=== PATIENT | female | born 1945 | race Caucasian/White ===

== ENCOUNTER → 2017-12-27 09:23 | Outpatient (CLI) | payer MEDICARE, SELFPAY ==
--- NOTE | 2017-12-27 09:33 | MRI_ITS ---
STUDY: MRI CERVICAL SPINE WITHOUT CONTRAST REASON FOR EXAM: Female, 72 years old. stenosis, neck pain, tingling bilat arms and legs. TECHNIQUE: Standardized fat and water weighted pulse sequences were obtained in the sagittal and axial planes. COMPARISON: May 18, 2012 FINDINGS: Normal foramen magnum and brainstem-cervical cord junction. Normal craniovertebral junction. Normal anterior atlantoaxial articulation. There is loss of the normal cervical lordosis. C2-3: There is minimal disc space narrowing at the hilus. There is minimal disc osteophyte complex, uncovertebral without central canal stenosis. There is minimal right and mild left foraminal stenosis. C3-4: There is moderate disc space narrowing and spondylosis. There is a mild disc osteophyte complex with mild central canal stenosis. There is uncovertebral arthropathy with minimal right and severe left foraminal stenosis. Findings are stable since prior examination C4-5: There is moderate disc space narrowing and disc space narrowing. There is grade 1 anterolisthesis. There is minimal disc osteophyte complex without significant central canal stenosis. There is uncovertebral facet arthropathy with minimal right and moderate left foraminal stenosis. Findings are stable since prior examination C5-6: There is moderate disc space narrowing and endplate spondylosis. There is mild disc osteophyte complex with mild central canal stenosis. There is degenerative and facet arthropathy with minimal right and moderate left foraminal stenosis. Findings are stable for examination C6-7: There is severe disc space narrowing and endplate spondylosis. There is minimal disc osteophyte complex with mild canal stenosis. There is uncovertebral facet arthropathy with mild right and moderate left foraminal stenosis. Findings are stable from prior examination C7-T1: There is mild disc space narrowing and endplate spondylosis there is no significant central canal or foraminal Normal cervical cord. Normal visualized soft tissue structures. MRI/Spine Cervical (Routine) IMPRESSION: Stable examination. Moderate/severe scoliosis and multilevel changes greater on the left. Electronically Signed: Sulma Medrano MD at 10:32 EDT Tel , Service support ,
--- NOTE | 2017-12-27 09:33 | MRI_ITS ---
STUDY: MRI THORACIC SPINE WITHOUT CONTRAST REASON FOR EXAM: Female, 72 years old. spondylosis, mid thoracic pain, bilat arms and legs tingling. TECHNIQUE: Standardized fat and water weighted pulse sequences were obtained in the sagittal and axial planes. COMPARISON: None. FINDINGS: Normal kyphosis of the thoracic spine. There is mild scoliosis. T1-2, T2-3, T3-4, T4-5, T5-6, T6-7, T7-8, T8-9, T9-10, T10-11, T11-12: There is mild/moderate disc space narrowing and endplate spondylosis without significant central canal or foraminal stenosis Normal visualized thoracic cord. The soft tissue structures are unremarkable. MRI/Spine Thoracic (Routine) IMPRESSION: No significant central canal or foraminal stenosis. Mild/moderate multilevel degenerative changes. Electronically Signed: Sulma Medrano MD at 10:35 EDT Tel , Service support ,
--- NOTE | 2017-12-27 09:33 | MRI_ITS ---
STUDY: MRI LUMBAR SPINE WITHOUT CONTRAST REASON FOR EXAM: Female, 72 years old. radiculopathy; bilat arms and legs tingling, low back pain. TECHNIQUE: Standardized fat and water weighted pulse sequences were obtained in the sagittal and axial planes. COMPARISON: March 05, 2009 FINDINGS: T12-L1: There is severe disc space narrowing and endplate spondylosis. There is facet arthropathy with mild central canal stenosis. There is mild right foraminal stenosis. There is no significant left foraminal stenosis. There is severe levoscoliosis centered at L1/L2 with lateral translation which appear increased since the prior examination. Normal conus medullaris that terminates at the L1/L2 L1-2: There is severe disc space narrowing and endplate spondylosis. There is no significant central canal or foraminal stenosis L2-3: There is severe disc space narrowing and anterior spondylosis. There is mild disc bulging and facet arthropathy with mild central canal and mild bilateral foraminal stenosis. Findings are stable since the prior examination L3-4: There is a moderate disc space narrowing and endplate spondylosis. There is a mild disc bulge and facet arthropathy with mild central canal and mild bilateral foraminal stenosis. Findings are stable since prior examination L4-5: There is moderate disc space narrowing and endplate spondylosis. There is a mild disc bulge and facet arthropathy greater on the left with mild central canal and moderate left foraminal stenosis findings are stable since the prior examination L5-S1: There is mild disc space narrowing and endplate spondylosis. There is a mild disc bulge and facet arthropathy greater on the left with moderate left foraminal stenosis. There is no significant central canal or right foraminal stenosis. Findings are stable since the prior examination MRI/Spine Lumbar (Routine) IMPRESSION: Severe scoliosis and multilevel degenerative changes.. Electronically Signed: Sulma Medrano MD at 10:35 EDT Tel , Service support ,
== END ==
PROVIDERS: Family Provider Family Medicine; PCP Family Medicine; Visit Provider Family Medicine
DX: M54.16 Radiculopathy, lumbar region (principal); M48.02 Spinal stenosis, cervical region; M47.814 Spondylosis without myelopathy or radiculopathy, thoracic region
CPT/HCPCS: 72141; 72146; 72148

== ENCOUNTER 2018-01-08 07:33 | Day surgery (SDC) | payer MEDICARE, SELFPAY ==
[2018-01-08 07:49] VITALS: BP 145/76; PULSE 69; RESP 16; TEMP 36.6; O2SAT 96; BMI 24.5
--- NOTE | 2018-01-08 08:50 | RAD_ITS ---
PROCEDURE: Caudal block. DATE OF EXAMINATION: January 08, 2018. INDICATION: Female, 72 years old. Chronic low back pain. FLUOROSCOPY TIME (if supplied): (0:09) minutes/seconds Intraoperative imaging provided for caudal block. RAD/Fluor Guidance for Spine Inj IMPRESSION: Intraoperative imaging provided for caudal block. Electronically Signed: Bentley Lee MD at 10:03 EDT Tel [phone], Service support ,
[2018-01-08] MEDS: 0.9% Saline Lock 10 ML Syringe IV (09:06)
[2018-01-08] MEDS: Bupivacaine 0.25% 30 ML Vial (09:06)
[2018-01-08] MEDS: MethylPREDNISolone Acetate 80 MG/ML Vial (09:06)
[2018-01-08 09:12] VITALS: BP 122/72; BP 145/76; PULSE 78; RESP 16; TEMP 36.8; O2SAT 95
[2018-01-08 09:15] VITALS: BP 121/68; BP 145/76; PULSE 68; RESP 16; O2SAT 94
[2018-01-08 09:20] VITALS: BP 121/75; BP 145/76; PULSE 65; RESP 16; O2SAT 97
[2018-01-08 09:25] VITALS: BP 126/76; BP 145/76; PULSE 65; RESP 16; TEMP 37; O2SAT 94
[2018-01-08 09:32] VITALS: BP 145/76
--- NOTE | 2018-01-08 15:46 | PCM.OPRPT ---
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 (2) Radiculopathy of lumbosacral region Status: Chronic (3) Spinal stenosis of lumbosacral region Status: Chronic Report of Operation Date of Procedure: 01/08/18 Pre-Operative Diagnosis: Lumbosacral radiculopathy, lumbosacral degenerative disc disease, lumbosacral spinal stenosis Post-Operative Diagnosis: Lumbosacral radiculopathy, lumbosacral degenerative disc disease, lumbosacral spinal stenosis Surgery/Procedure Performed:: Diagnostic/therapeutic caudal epidural steroid injection Description of Surgical Findings:: Procedure: Diagnostic/therapeutic caudal epidural steroid injection Preoperative diagnosis: Lumbosacral radiculopathy, lumbosacral degenerative disc disease, lumbosacral spinal stenosis Postoperative diagnosis:Lumbosacral radiculopathy, lumbosacral degenerative disc disease, lumbosacral spinal stenosis Anesthesia: MAC Blood loss: Minimal Complications: None Procedure in detail: History and physical today was reviewed risk and benefits of procedure explained the patient understood and agreed to procedure informed consent was obtained IV inserted per routine protocol patient was taken to the operating room placed in the prone position with a pillow position underneath the abdomen the lower back and tailbone area was prepped and draped in a sterile fashion using iodine ?3 under direct visualization with fluoroscopy on the lateral view the caudal space was identified skin and subcutaneous tissue anesthetized approximately 3 cc of 1% lidocaine using a 25-gauge regular needle under direct visualization fluoroscopy on the lateral view using a 22-gauge 3-1/2 inch spinal needle the needle was advanced via the skin through the sacral hiatus tip of needle passed through the sacrococcygeal ligament advanced approximately S4 area after negative aspiration for blood or CSF a total of 3 cc of contrast were injected to confirm correct placement of the needle as well as cephalad spread the spread was followed to approximately L5 area after repeated confirmation AP as well as lateral view and repeated negative aspiration a total of 15 cc of preservative-free 0.125% Marcaine with 80 mg of Depo-Medrol were injected easily the needle was then removed intact patient experienced no sinus symptoms intrathecal or intravascular injection patient experienced no paresthesia the procedure was completed without any apparent difficulty any complication the patient appeared to tolerate well. Assessment and plan: This is a 72-year-old female with lumbosacral radiculopathy lumbosacral degenerative disc disease lumbosacral spinal stenosis status post diagnostic/therapeutic caudal epidural steroid injection patient will continue her current medications patient will follow approximately 2 weeks for possible repeat of the procedure if indicated.
== END 2018-01-08 10:00 | disposition home or self-care (01) ==
LOC: SDC 07:33 → AC 07:35
PROVIDERS: Family Provider Family Medicine; PCP Family Medicine; Visit Provider Anesthesiology Pain Medicine
PROC: 3E0S3BZ Introduction of Anesthetic Agent into Epidural Space, Percutaneous Approach (ICD-10-PCS; CPT 62282; principal; 2018-01-08 08:45)
DX: M51.17 Intervertebral disc disorders with radiculopathy, lumbosacral region (principal); M48.07 Spinal stenosis, lumbosacral region; M47.27 Other spondylosis with radiculopathy, lumbosacral region; Q67.5 Congenital deformity of spine; G47.30 Sleep apnea, unspecified; G25.81 Restless legs syndrome; Z86.73 Personal history of transient ischemic attack (TIA), and cerebral infarction without residual deficits; Z79.82 Long term (current) use of aspirin; Z79.891 Long term (current) use of opiate analgesic
CPT/HCPCS: 62323; 64520 ×5; 64483; 77003; J7120; A4216

== ENCOUNTER 2018-01-29 08:24 | Day surgery (SDC) | payer MEDICARE, SELFPAY ==
[2018-01-29 08:45] VITALS: BP 145/71; PULSE 94; RESP 16; TEMP 36.7; O2SAT 94; BMI 24.0
--- NOTE | 2018-01-29 09:05 | RAD_ITS ---
PROCEDURE: Right L3-S1 lumbar facet joint block. DATE OF EXAMINATION: January 29, 2018. INDICATION: Female, 72 years old. Chronic back pain. FLUOROSCOPY TIME (if supplied): (0:13) minutes/seconds Intraoperative fluoroscopic imaging provided for right L3-S1 facet joint block. RAD/L/S Spine Min 4 Views IMPRESSION: Intraoperative fluoroscopic services provided for right L3-S1 facet joint block. Electronically Signed: Bentley Lee MD at 10:58 EDT Tel [phone], Service support ,
[2018-01-29] MEDS: Bupivacaine 0.25% 30 ML Vial (09:12)
[2018-01-29] MEDS: MethylPREDNISolone Acetate 80 MG/ML Vial (09:14)
[2018-01-29 09:20] VITALS: BP 113/70; BP 145/71; PULSE 83; RESP 14; TEMP 36.4; O2SAT 95
[2018-01-29 09:25] VITALS: BP 122/74; BP 145/71; PULSE 86; RESP 14; O2SAT 93
[2018-01-29 09:30] VITALS: BP 113/72; BP 145/71; PULSE 80; RESP 14; O2SAT 92
--- NOTE | 2018-01-29 09:30 | OP.PCM_ITS ---
Problem List (1) Lumbosacral spondylosis Status: Chronic (2) Degeneration of intervertebral disc of lumbosacral region Status: Chronic Report of Operation Date of Procedure: 01/29/18 Pre-Operative Diagnosis: Lumbosacral spondylosis, lumbosacral degenerative disc disease, lumbar facet arthropathy Post-Operative Diagnosis: Lumbosacral spondylosis, lumbosacral degenerative disc disease, lumbar facet arthropathy Surgery/Procedure Performed:: Right-sided lumbar facet steroid injection L3, L4 , L5, S1 Description of Surgical Findings:: PROCEDURE: Right-sided lumbar facet steroid injection L3, L4, L5, S1 PREOPERATIVE DIAGNOSIS: Lumbosacral spondylosis, lumbosacral degenerative disc disease, and lumbar facet arthropathy POSTOPERATIVE DIAGNOSIS: Lumbosacral spondylosis, lumbosacral degenerative disc disease, and lumbar facet arthropathy ANESTHESIA: MAC COMPLICATIONS: None BLOOD LOSS: Minimal PROCEDURE IN DETAIL: History and physical today was reviewed. Risks and benefits of the procedure were explained. The patient understood, agreed to our procedure, and informed consent was obtained. IV inserted per routine protocol. The patient was taken to the operating room, placed in a prone position with a pillow positioned underneath the abdomen. The right side of his lower back was prepped and draped in a sterile fashion using iodine x3. Under fluoroscopy guidance, on AP view, L3 through S1 vertebral bodies were visualized. Skin and subcutaneous tissues were anesthetized with approximately 5 mL of 1% lidocaine using a 25-gauge regular needle. Under direct visualization with fluoroscopy at approximately 25-degree angle, starting on the right L3, ending on the right S1, passing through the L4-L5 using a 22-gauge 3 1/2-inch spinal needle, the needle was advanced via the skin. The tip of the needle was maneuvered and directed towards the superior and medial gutter of the transverse process at the vicinity of the medial branch. Once the tip of the needle was in contact with the bone, the needle pulled approximately 2 mm off the bone. After negative aspiration of blood with CSF and confirmation of AP as well as oblique view, a total of 8 mL of preservative-free 0.25% Marcaine with 80 mg of Depo- Medrol was injection in divided doses between those 4 levels. The needles were then removed intact. The patient experienced no signs or symptoms intrathecal, intravascular injection. The patient experienced no paraesthesia. The procedure was completed without any apparent difficult, any complication. The patient appeared to tolerate well. ASSESSMENT AND PLAN: This is a 72-year-old female with lumbosacral spondylosis, lumbosacral degenerative disc disease, and lumbar facet arthropathy, status post right-sided lumbar facet steroid injection L3 through S1. The patient will continue her current medications. The patient will follow in approximately 2 weeks for possible repeat of the procedure if indicated.
[2018-01-29 09:35] VITALS: BP 119/73; BP 145/71; PULSE 85; RESP 16; TEMP 36.2; O2SAT 92
[2018-01-29 10:30] VITALS: BP 145/71
== END 2018-01-29 10:31 | disposition home or self-care (01) ==
LOC: SDC 08:24 → AC 08:26
PROVIDERS: Family Provider Family Medicine; PCP Family Medicine; Visit Provider Anesthesiology Pain Medicine
PROC: 3E0T3BZ Introduction of Anesthetic Agent into Peripheral Nerves and Plexi, Percutaneous Approach (ICD-10-PCS; CPT 64493; principal; 2018-01-29 09:45)
DX: M47.27 Other spondylosis with radiculopathy, lumbosacral region (principal); M51.17 Intervertebral disc disorders with radiculopathy, lumbosacral region; M48.07 Spinal stenosis, lumbosacral region; M41.86 Other forms of scoliosis, lumbar region; M79.1 Myalgia; G25.81 Restless legs syndrome; Z86.73 Personal history of transient ischemic attack (TIA), and cerebral infarction without residual deficits; Z79.82 Long term (current) use of aspirin; Z79.891 Long term (current) use of opiate analgesic
CPT/HCPCS: 64493; 64494; 64495; 64483; 72110; J7120

== ENCOUNTER → 2018-02-21 12:26 | Outpatient (CLI) | payer MEDICARE, SELFPAY ==
--- NOTE | 2018-02-22 08:13 | PFTCOMP ---
COMPLETE PULMONARY FUNCTION TEST INTERPRETATION Brief HPI: Patient is a 72 year old female, currently under the care of myself, who presents to [facility] for complete pulmonary function tests secondary to diagnosis of HUGH. Respiratory therapist reports good effort and reproducible results. Interpretation: Forced expiration spirometry shows no large airways obstructive ventilatory defect with an FEV1 of 77% predicted. There is no significant bronchodilator response by ATS criteria. Spirograms are of good quality and plateau normally. The respiratory flow volume loop shows a normal pattern. Lung volumes by body plethysmography show a decreased total lung capacity at 3.55 L, 76% predicted. All other lung volumes are reduced symmetrically. Diffusion capacity by carbon monoxide is normal at 69% predicted. The airway resistance is normal. No previous pulmonary function tests were available for review. Impression: Mild restrictive ventilatory defect with preserved diffusion capacity consistent with musculoskeletal limitation.
== END ==
PROVIDERS: Family Provider Family Medicine; PCP Family Medicine; Visit Provider Internal Medicine Critical Care Medicine
DX: M41.55 Other secondary scoliosis, thoracolumbar region (principal); G47.33 Obstructive sleep apnea (adult) (pediatric)
CPT/HCPCS: 94060; 94726; 94729

== ENCOUNTER → 2018-03-23 12:50 | Outpatient (CLI) | payer MEDICARE, SELFPAY ==
--- NOTE | 2018-03-23 12:52 | BI_ITS ---
MAMMOGRAPHY - BILATERAL SCREENING REASON FOR EXAM: Female, 72 years old. Routine annual screening examination. PERTINENT HISTORY: Non-contributory. TECHNIQUE: Digital bilateral breast chayito (3D mammographic acquisition) in the CC and MLO projections. 2-D mediolateral oblique (MLO) and craniocaudad (CC) views of both breasts were obtained. CAD: Full Field Digital Mammography with Computer Added Detection was performed. COMPARISON: Comparison is made with prior study dated January 04, 2017 and December 09, 2015. FINDINGS: Breast Composition: The breasts are heterogeneously dense, which may obscure small masses. There are no dominant masses or suspicious calcifications. No other significant abnormalities are identified. There has been no significant change since the prior study. BI/SCREENING MAMM (CAD), BILAT IMPRESSION: Stable bilateral screening mammogram. Yearly follow-up mammogram recommended. (A) ASSESSMENT CATEGORY: BIRADS Category 1: Negative. A letter regarding these results will be sent to the patient by the facility within 30 days. Approximately 10% of breast cancers are not detected by mammography. A normal mammogram should not delay biopsy of a clinically suspicious abnormality. [id number] Electronically Signed: Bentley Lee MD at 14:12 EDT Tel [phone], Service support ,
== END ==
PROVIDERS: Family Provider Family Medicine; PCP Family Medicine; Visit Provider Family Medicine
DX: Z12.31 Encounter for screening mammogram for malignant neoplasm of breast (principal)
CPT/HCPCS: 77063; 77067

== ENCOUNTER 2018-03-26 08:22 | Day surgery (SDC) | payer MEDICARE, SELFPAY ==
[2018-03-26] VITALS (7 sets, daily range): BP systolic 108–136; BP diastolic 72–87; PULSE 65–83; RESP 16; TEMP 36.2–36.4; O2SAT 92–100; BMI 24.5
--- NOTE | 2018-03-26 10:10 | RAD_ITS ---
STUDY: INTRAOPERATIVE IMAGING FOR FACET JOINT BLOCK. REASON FOR EXAM: Female, 72 years old. Chronic back pain. Levoscoliosis. FLUOROSCOPY TIME (if supplied): (0:16) minutes/seconds TECHNIQUE: Intraoperative imaging provided for left L3-S1 facet joint block. COMPARISON: None. FINDINGS: Imaging provided for left L3-S1 facet joint block. RAD/L/S Spine Min 4 Views IMPRESSION: Imaging provided for left L3-S1 facet joint block. Electronically Signed: Bentley Lee MD at 11:21 EDT Tel [phone], Service support ,
[2018-03-26] MEDS: Bupivacaine 0.25% 30 ML Vial (10:26)
[2018-03-26] MEDS: MethylPREDNISolone Acetate 80 MG/ML Vial (10:26)
--- NOTE | 2018-03-26 11:52 | OP.PCM_ITS ---
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 (2) Lumbosacral spondylosis Status: Chronic Report of Operation Date of Procedure: 03/26/18 Pre-Operative Diagnosis: Lumbosacral spondylosis, lumbosacral degenerative disc disease, lumbar facet arthropathy Post-Operative Diagnosis: Lumbosacral spondylosis, lumbosacral degenerative disc disease, lumbar facet arthropathy Surgery/Procedure Performed:: Left-sided lumbar facet steroid injection L3, L4, L5, S1 Description of Surgical Findings:: PROCEDURE: Left-sided lumbar facet steroid injection L3, L4, L5, S1 PREOPERATIVE DIAGNOSIS: Lumbosacral spondylosis, lumbosacral degenerative disc disease, and lumbar facet arthropathy POSTOPERATIVE DIAGNOSIS: Lumbosacral spondylosis, lumbosacral degenerative disc disease, and lumbar facet arthropathy ANESTHESIA: MAC COMPLICATIONS: None BLOOD LOSS: Minimal PROCEDURE IN DETAIL: History and physical today was reviewed. Risks and benefits of the procedure were explained. The patient understood, agreed to our procedure, and informed consent was obtained. IV inserted per routine protocol. The patient was taken to the operating room, placed in a prone position with a pillow positioned underneath the abdomen. The left side of her lower back was prepped and draped in a sterile fashion using iodine x3. Under fluoroscopy guidance, on AP view, L3 through S1 vertebral bodies were visualized. Skin and subcutaneous tissues were anesthetized with approximately 5 mL of 1% lidocaine using a 25-gauge regular needle. Under direct visualization with fluoroscopy at approximately 25-degree angle, starting on the left L3, ending on the left S1, passing through the L4-L5 using a 22-gauge 3 1/2-inch spinal needle, the needle was advanced via the skin. The tip of the needle was maneuvered and directed towards the superior and medial gutter of the transverse process at the vicinity of the medial branch. Once the tip of the needle was in contact with the bone, the needle pulled approximately 2 mm off the bone. After negative aspiration of blood with CSF and confirmation of AP as well as oblique view, a total of 8 mL of preservative-free 0.25% Marcaine with 80 mg of Depo- Medrol was injection in divided doses between those 4 levels. The needles were then removed intact. The patient experienced no signs or symptoms intrathecal, intravascular injection. The patient experienced no paraesthesia. The procedure was completed without any apparent difficult, any complication. The patient appeared to tolerate well. ASSESSMENT AND PLAN: This is a 72-year-old Female with lumbosacral spondylosis, lumbosacral degenerative disc disease, and lumbar facet arthropathy, status post left-sided lumbar facet steroid injection L3 through S1. The patient will continue her current medications. The patient will follow in approximately 2 weeks for possible repeat of the procedure if indicated.
== END 2018-03-26 11:29 | disposition home or self-care (01) ==
LOC: SDC 08:22 → AC 08:23
PROVIDERS: Family Provider Family Medicine; PCP Family Medicine; Visit Provider Anesthesiology Pain Medicine
PROC: 3E0T3BZ Introduction of Anesthetic Agent into Peripheral Nerves and Plexi, Percutaneous Approach (ICD-10-PCS; CPT 64493; principal; 2018-03-26 10:05)
DX: M47.27 Other spondylosis with radiculopathy, lumbosacral region (principal); M51.17 Intervertebral disc disorders with radiculopathy, lumbosacral region; M48.07 Spinal stenosis, lumbosacral region; M41.86 Other forms of scoliosis, lumbar region; M79.1 Myalgia; Q76.49 Other congenital malformations of spine, not associated with scoliosis; G25.81 Restless legs syndrome; Z86.73 Personal history of transient ischemic attack (TIA), and cerebral infarction without residual deficits; Z79.82 Long term (current) use of aspirin; Z79.891 Long term (current) use of opiate analgesic
CPT/HCPCS: 64493; 64494; 64495; 64483; 72110; J7120

== ENCOUNTER 2018-05-14 07:57 | Day surgery (SDC) | payer MEDICARE, SELFPAY ==
[2018-05-14 08:18] VITALS: BP 126/77; PULSE 88; RESP 14; TEMP 35.6; O2SAT 96; BMI 24.4
[2018-05-14] MEDS: MethylPREDNISolone Acetate 80 MG/ML Vial (08:48)
[2018-05-14] MEDS: Bupivacaine 0.25% 30 ML Vial (08:48)
[2018-05-14 08:58] VITALS: BP 118/66; BP 126/77; PULSE 69; RESP 16; TEMP 36.4; O2SAT 94
[2018-05-14 09:00] VITALS: BP 118/66; BP 126/77; PULSE 67; RESP 16; O2SAT 94
[2018-05-14 09:05] VITALS: BP 107/79; BP 126/77; PULSE 70; RESP 16; O2SAT 95
[2018-05-14 09:10] VITALS: BP 110/69; BP 126/77; PULSE 73; RESP 16; TEMP 36.2; O2SAT 94
[2018-05-14 09:23] VITALS: BP 126/77
--- NOTE | 2018-05-14 11:08 | PCM.OPRPT ---
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 (2) Lumbosacral spondylosis Status: Chronic Report of Operation Date of Procedure: 05/14/18 Pre-Operative Diagnosis: Lumbosacral spondylosis, lumbosacral degenerative disc disease, lumbar facet arthropathy Post-Operative Diagnosis: Lumbosacral spondylosis, lumbosacral degenerative disc disease, lumbar facet arthropathy Surgery/Procedure Performed:: Left sided lumbar facet steroid injection L3, L4, L5, S1 Description of Surgical Findings:: PROCEDURE: Left-sided lumbar facet steroid injection L3, L4, L5, S1 PREOPERATIVE DIAGNOSIS: Lumbosacral spondylosis, lumbosacral degenerative disc disease, lumbar facet arthropathy POSTOPERATIVE DIAGNOSIS: Lumbosacral spondylosis, lumbosacral degenerative disc disease, lumbar facet arthropathy ANESTHESIA: MAC COMPLICATIONS: None BLOOD LOSS: Minimal PROCEDURE IN DETAIL: History and physical today was reviewed. Risks and benefits of the procedure were explained. The patient understood, agreed to our procedure, and informed consent was obtained. IV inserted per routine protocol. The patient was taken to the operating room, placed in a prone position with a pillow positioned underneath the abdomen. The left side of her lower back was prepped and draped in a sterile fashion using iodine x3. Under fluoroscopy guidance, on AP view, L3 through S1 vertebral bodies were visualized. Skin and subcutaneous tissues were anesthetized with approximately 5 mL of 1% lidocaine using a 25-gauge regular needle. Under direct visualization with fluoroscopy at approximately 25-degree angle, starting on the left L3, ending on the left S1, passing through the L4-L5 using a 22-gauge 3 1/2-inch spinal needle, the needle was advanced via the skin. The tip of the needle was maneuvered and directed towards the superior and medial gutter of the transverse process at the vicinity of the medial branch. Once the tip of the needle was in contact with the bone, the needle pulled approximately 2 mm off the bone. After negative aspiration of blood with CSF and confirmation of AP as well as oblique view, a total of 8 mL of preservative-free 0.25% Marcaine with 80 mg of Depo-Medrol was injection in divided doses between those 4 levels. The needles were then removed intact. The patient experienced no signs or symptoms intrathecal, intravascular injection. The patient experienced no paraesthesia. The procedure was completed without any apparent difficult, any complication. The patient appeared to tolerate well. ASSESSMENT AND PLAN: This is a 73-year-old F with Lumbosacral spondylosis, lumbosacral degenerative disc disease, lumbar facet arthropathy status post left-sided lumbar facet steroid injection L3 through S1. The patient will continue her current medications. The patient will follow in approximately 2 weeks for possible repeat of the procedure if indicated.
== END 2018-05-14 09:55 | disposition home or self-care (01) ==
LOC: SDC 07:58
PROVIDERS: Family Provider Family Medicine; PCP Family Medicine; Visit Provider Anesthesiology Pain Medicine
PROC: 3E0T3BZ Introduction of Anesthetic Agent into Peripheral Nerves and Plexi, Percutaneous Approach (ICD-10-PCS; CPT 64493; principal; 2018-05-14 08:45)
DX: M47.817 Spondylosis without myelopathy or radiculopathy, lumbosacral region (principal); M51.37 Other intervertebral disc degeneration, lumbosacral region; M46.96 Unspecified inflammatory spondylopathy, lumbar region; R01.1 Cardiac murmur, unspecified; Q76.49 Other congenital malformations of spine, not associated with scoliosis; G25.81 Restless legs syndrome; Z86.73 Personal history of transient ischemic attack (TIA), and cerebral infarction without residual deficits; Z79.899 Other long term (current) drug therapy
CPT/HCPCS: 64493; 64494; 64495; 64483; 72100; J7120

== ENCOUNTER 2018-10-29 06:37 | Day surgery (SDC) | payer MEDICARE, SELFPAY ==
[2018-10-29] VITALS (9 sets, daily range): BP systolic 77–144; BP diastolic 51–83; PULSE 61–72; RESP 16–18; TEMP 36.3–36.4; O2SAT 92–96; BMI 24.2
--- NOTE | 2018-10-29 08:00 | RAD_ITS ---
STUDY: X-RAY - LUMBAR SPINE REASON FOR EXAM: Female, 73 years old. Radiofrequency ablation TECHNIQUE: 10 view(s) of the lumbar spine were obtained. COMPARISON: None FINDINGS: 10 images were submitted, as radiology support for c-arm imaging in the operating room. This is not a diagnostic examination. Images for documentation purposes only. Fluoroscopy time if reported: 43.6 seconds RAD/Lumbar Spine 2 or 3 Views IMPRESSION: Intraoperative fluoroscopic image guidance. Electronically Signed: Jocelynn Chung MD at 4:20 EST , Service support ,
[2018-10-29] MEDS: MethylPREDNISolone Acetate 80 MG/ML Vial (08:16)
[2018-10-29] MEDS: Bupivacaine 0.25% 30 ML Vial (08:16)
--- NOTE | 2018-10-29 11:07 | OP.PCM_ITS ---
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 (2) Lumbosacral spondylosis Status: Chronic Report of Operation Date of Procedure: 10/29/18 Pre-Operative Diagnosis: Lumbosacral spondylosis, lumbosacral degenerative disc disease, lumbar facet arthropathy Post-Operative Diagnosis: Lumbosacral spondylosis, lumbosacral degenerative disc disease, lumbar facet arthropathy Surgery/Procedure Performed:: Left-sided lumbar radio frequency ablation of the medial branch at L3, L4, L5, S1 Description of Surgical Findings:: PROCEDURE: Left-sided radiofrequency ablation of the medial branch L3, L4, L5, S1 PREOPERATIVE DIAGNOSES: Lumbosacral spondylosis, lumbosacral degenerative disc disease, lumbar facet arthropathy POSTOPERATIVE DIAGNOSES: Lumbosacral spondylosis, lumbosacral degenerative disc disease, lumbar facet arthropathy ANESTHESIA: MAC COMPLICATIONS: None BLOOD LOSS: Minimal PROCEDURE IN DETAIL: History and physical today was reviewed. Risks and benefits of procedure explained. The patient understood, agreed to the procedure and informed consent was obtained. IV inserted per routine protocol. The patient was taken to the operating room, placed in the prone position with a pillow positioned underneath the abdomen. The left side of the lower back was prepped and draped in a sterile fashion using iodine x 3. Under fluoroscopy guidance, on an oblique view, the L3 through S1 vertebral bodies were visualized. The skin and subcutaneous tissue was anesthetized with approximately 10 mL of 1% lidocaine using a 25-gauge regular needle. Under direct visualization with fluoroscopy at approximately 25-degree angle, starting on the left L3, ending on the left S1 passing through the L4-L5 using a 20-gauge 15 cm with a 10 mm curved active tip radiofrequency ablation needle the needle passed through the skin. The tip of the needle was maneuvered and directed towards the superior and medial gutter of the transverse process at the vicinity of the medial branch. Once the tip of the needle was in contact with the bone, the needle pulled approximately 2 mm up the bone. The stylet of each needle was then removed. After negative aspiration of blood with CSF and confirmation of AP as well as oblique view, radiofrequency ablation probe was then inserted at each level. Impedance was then recorded at L3 to be 288, at L4 298, at L5 287, at S1 254 ohm. Motor-evoked potential was then initiated to 1.5 volt without any motor response at each corresponding level. The probe was then removed intact and a total of 6 mL preservative-free 1% lidocaine was injected in divided doses between those 4 levels after negative aspiration of blood with CSF. The radiofrequency ablation probe was then reinserted after confirmation of AP, oblique as well as lateral view. Radiofrequency ablation was then initiated to 80 degrees Celsius for 90 seconds at each level. Once concluded, the probe was then removed intact and a total of 6 mL of preservative-free 0.25% Marcaine with 40 mg Depo-Medrol was injected in divided doses between those 4 levels. The needles were then removed intact. The patient experienced no signs or symptoms of intrathecal, intravascular injection. The patient experienced no paraesthesia. The procedure was completed without any apparent difficulty, any complication. The patient appeared to tolerate well. Sensory as well as motor exam was unchanged from prior to procedure. ASSESSMENT AND PLAN: This is a 73-year-old female with lumbosacral spondylosis, lumbosacral degene rative disc disease, lumbar facet arthropathy, status post left-sided radiofrequency ablation of the medial branch L3 through S1. The patient will continue her current medications. The patient will follow up in approximately 2 weeks for reevaluation.
== END 2018-10-29 09:47 | disposition home or self-care (01) ==
LOC: SDC 06:37 → AC 06:39
PROVIDERS: Family Provider Family Medicine; PCP Family Medicine; Referring Provider Anesthesiology Pain Medicine; Visit Provider Anesthesiology Pain Medicine
PROC: (CPT 64635; principal; 2018-10-29 07:45)
DX: M51.17 Intervertebral disc disorders with radiculopathy, lumbosacral region (principal); M48.07 Spinal stenosis, lumbosacral region; M47.27 Other spondylosis with radiculopathy, lumbosacral region; M41.86 Other forms of scoliosis, lumbar region; G25.81 Restless legs syndrome; Z86.73 Personal history of transient ischemic attack (TIA), and cerebral infarction without residual deficits; Z79.82 Long term (current) use of aspirin; Z79.891 Long term (current) use of opiate analgesic; Z79.899 Other long term (current) drug therapy; Z99.81 Dependence on supplemental oxygen
CPT/HCPCS: 64635; 64636 ×3; 72100; 76000; J7120

== ENCOUNTER 2019-01-07 09:45 | Day surgery (SDC) | payer MEDICARE, SELFPAY ==
[2018-10-29 07:00] VITALS: BMI 24.2
[2019-01-07 10:06] VITALS: BP 131/79; PULSE 83; RESP 18; TEMP 36.7; O2SAT 97; BMI 24.8
--- NOTE | 2019-01-07 11:12 | RAD_ITS ---
PROCEDURE: Caudal block. DATE OF EXAMINATION: January 07, 2015. INDICATION: Female, 73 years old. Chronic back pain. FLUOROSCOPY TIME (if supplied): (0:07) minutes/seconds. 2 coned-down views were obtained. Intraoperative fluoroscopic imaging provided for caudal block. The spinal needle is seen along the posterior inferior aspect of the sacrum. RAD/Fluor Guidance for Spine Inj IMPRESSION: Intraoperative fluoroscopic services provided for caudal block. Electronically Signed: Bentley Lee, at 12:59 EDT , Service support ,
[2019-01-07] MEDS: Bupivacaine 0.25% 30 ML Vial (11:20)
[2019-01-07] MEDS: MethylPREDNISolone Acetate 80 MG/ML Vial (11:20)
--- NOTE | 2019-01-07 11:24 | OP.PCM_ITS ---
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 (2) Radiculopathy of lumbosacral region Status: Chronic Report of Operation Date of Procedure: 01/07/19 Pre-Operative Diagnosis: Lumbosacral radiculopathy, lumbosacral degenerative disc disease, lumbosacral spinal stenosis Post-Operative Diagnosis: Lumbosacral radiculopathy, lumbosacral degenerative disc disease, lumbosacral spinal stenosis Surgery/Procedure Performed:: Caudal epidural steroid injection Description of Surgical Findings:: PROCEDURE: Caudal epidural steroid injection PREOPERATIVE DIAGNOSIS: Lumbosacral radiculopathy, lumbosacral degenerative disc disease, lumbosacral spinal stenosis POSTOPERATIVE DIAGNOSIS: Lumbosacral radiculopathy, lumbosacral degenerative disc disease, lumbosacral spinal stenosis ANESTHESIA: MAC COMPLICATIONS: None BLOOD LOSS: Minimal PROCEDURE IN DETAIL: History and physical today was reviewed. Risks and benefits of the procedure were explained. The patient understood, agreed to our procedure, and informed consent was obtained. IV inserted per routine protocol. The patient was taken to the operati ng room, placed in a prone position with a pillow positioned underneath the abdomen. The lower back and tailbone area was prepped and draped in a sterile fashion using iodine ?3 under fluoroscopy guidance on the lateral view the caudal space was identified the skin and subcutaneous tissue and size approximately 3 cc of 1% lidocaine using a 25-gauge regular needle under direct visualization fluoroscopy using the lateral approach using a 22-gauge 3-1/2 inch spinal needle the needle was advanced via the skin through the sacral hiatus, tip of the needle passed through the sacrococcygeal ligament advanced approximately S4 area after negative aspiration for blood or CSF a total of 3 cc of contrast were injected to confirm correct placement of the needle as well as cephalad spread the spread was followed to approximately L5 area after confirmation on AP as well as lateral view and repeated negative aspiration, a total of 15 cc of preservative-free 0.125% Marcaine with 80 mg of the Depo-Medrol was injected easily. The needle was then removed intact. The patient experienced no signs or symptoms of intrathecal, intravascular injection. The patient experienced no paraesthesia. The procedure was completed without any apparent difficult, any complication. The patient appeared to tolerate well. ASSESSMENT AND PLAN: This is a 73-year-old female with lumbosacral radiculopathy, lumbosacral degenerative disc disease, lumbosacral spinal stenosis status post caudal epidural steroid injection. The patient will continue her current medications. The patient will follow in approximately 2 weeks for reevaluation.
[2019-01-07 11:25] VITALS: BP 108/72; BP 131/79; PULSE 80; RESP 16; TEMP 36.7; O2SAT 95
[2019-01-07 11:30] VITALS: BP 107/71; BP 131/79; PULSE 80; RESP 16; O2SAT 96
[2019-01-07 11:35] VITALS: BP 119/73; BP 131/79; PULSE 79; RESP 16; O2SAT 95
[2019-01-07 11:40] VITALS: BP 110/67; BP 131/79; PULSE 75; RESP 16; TEMP 36.4; O2SAT 98
[2019-01-07 12:25] VITALS: BP 131/79
== END 2019-01-07 12:26 | disposition home or self-care (01) ==
LOC: SDC 09:47 → AC 09:48
PROVIDERS: Family Provider Family Medicine; PCP Family Medicine; Referring Provider Anesthesiology Pain Medicine; Visit Provider Anesthesiology Pain Medicine
PROC: 3E0S3BZ Introduction of Anesthetic Agent into Epidural Space, Percutaneous Approach (ICD-10-PCS; CPT 62282; principal; 2019-01-07 11:05)
DX: M51.17 Intervertebral disc disorders with radiculopathy, lumbosacral region (principal); G47.30 Sleep apnea, unspecified; G25.81 Restless legs syndrome; Z79.899 Other long term (current) drug therapy
CPT/HCPCS: 62323; 64520; 64483; 77003; J7120; J3490

== ENCOUNTER → 2019-01-10 | Outpatient (CLI) | payer MEDICARE, SELFPAY ==
[2019-01-07 10:06] VITALS: BMI 24.8
--- NOTE | 2019-01-10 15:23 | PFTCOMP ---
COMPLETE PULMONARY FUNCTION TEST INTERPRETATION Brief HPI: Patient is a 73 year old female, currently under the care of myself, who presents to [facility] for complete pulmonary function tests secondary to diagnosis of HUGH. Respiratory therapist reports good effort and reproducible results. Interpretation: Forced expiration spirometry shows no large airways obstructive ventilatory defect with an FEV1 of 87% predicted. There is no significant bronchodilator response by strict ATS criteria. Spirograms are of good quality and plateau normally. The respiratory flow volume loop shows a normal pattern. Lung volumes by body plethysmography show a decreased total lung capacity at 3.62 L, 79% predicted. All other lung volumes are reduced symmetrically. Diffusion capacity by carbon monoxide is normal at 70% predicted. The airway resistance is elevated. Compared to previous pulmonary function tests from 02/21/2018, there has been no significant change. Impression: Held restrictive ventilatory defect with no significant exchange underwriting consultant the last year
== END | disposition home or self-care (01) ==
LOC: PSN 10:43
PROVIDERS: Family Provider Family Medicine; PCP Family Medicine; Referring Provider Internal Medicine Critical Care Medicine; Visit Provider Internal Medicine Critical Care Medicine
DX: M41.9 Scoliosis, unspecified (principal); G47.33 Obstructive sleep apnea (adult) (pediatric)
CPT/HCPCS: 94060; 94726; 94729

== ENCOUNTER → 2019-03-25 | Outpatient (CLI) | payer MEDICARE, SELFPAY ==
[2019-01-18 11:14] VITALS: BMI 24.3
--- NOTE | 2019-03-25 12:10 | RAD_ITS ---
STUDY: X-RAY - PELVIS AND BILATERAL HIPS REASON FOR EXAM: Female, 73 years old. Pain TECHNIQUE: AP view of the pelvis.? 2 views of the right hip, and 2 views of the left hip were obtained. COMPARISON: None. FINDINGS: There is a non-specific bowel gas pattern. Normal visualized soft tissue structures. There is narrowing with cortical sclerosis and osteophyte formation of the sacroiliac joint consistent with degenerative osteoarthritic changes. Normal bilateral superior and inferior pubic rami. Normal pubic symphysis. Normal bilateral ischial tuberosities. Normal visualized right femoral head. Normal right acetabulum. There is moderate articular joint space narrowing of the right hip. Normal visualized left femoral head. Normal left acetabulum. There is moderate articular joint space narrowing of the left hip. Multiple lucent centered phleboliths noted in the pelvis. RAD/Hips B/L min 2 views w/ Pelvis IMPRESSION: Age consistent hip and SI joint arthrosis. No demonstrated fracture Electronically Signed: Nuno Pizarro MD at 13:59 EDT , Service support ,
== END | disposition home or self-care (01) ==
LOC: RAD 12:04
PROVIDERS: Family Provider Family Medicine; PCP Family Medicine; Referring Provider Nurse Practitioner Family; Visit Provider Nurse Practitioner Family
DX: M25.551 Pain in right hip (principal); M25.552 Pain in left hip
CPT/HCPCS: 73521

== ENCOUNTER → 2019-05-01 11:27 | Outpatient (CLI) | payer MEDICARE, SELFPAY ==
[2019-01-18 11:14] VITALS: BMI 24.3
--- NOTE | 2019-05-01 11:32 | BD_ITS ---
STUDY: DUAL ENERGY X-RAY ABSORPTIOMETRY / DXA REASON FOR EXAM: Female, 73 years old. The patient is postmenopausal. Loss of height. TECHNIQUE: Bone Mineral Density (BMD) measurements of lumbar spine and bilateral hips were obtained. COMPARISON: Comparison is made with prior study dated May 11, 2016. FINDINGS: Lumbar Spine (L1-L4): g/cm2 (1.047) / T-score (-1.3) / Z-score (0.5) Findings are suggestive of osteopenia with a low fracture risk. Left Femur Total: g/cm2 (0.819) / T-score (-1.5) / Z-score (0.3) Left Femoral Neck: g/cm2 (0.760) / T-score (-2.0) / Z-score (0.0) Right Femur Total: g/cm2 (0.813) / T-score (-1.5) / Z-score (0.2) Right Femoral Neck: g/cm2 (0.688) / T-score (-2.5) / Z-score (-0.6) The T-Scores on the most recent prior examination were: Lumbar Spine (L1-L4): There has been worsening of bone density since the previous examination. Left Femur Total: which represents a worsening of 3.1%. Right Femur Total: which represents a worsening of 8.3%. BD/Dexa Bone Density Study IMPRESSION: The patient is considered osteoporotic as outlined below according to World [employer] Organization (WHO) criteria with a high fracture risk. There has been worsening of bone density since the previous examination. Reference Information: The T-score is the number of standard deviations above or below the standard which is normal for young adults at their peak bone mineral density. The World Health Organization (WHO) interprets the T-scores as follows: Above -1 Normal bone density Between -1 and -2.5 Osteopenia Equal to / or below -2.5 Osteoporosis As a practical clinical guideline, osteopenia may be graded as follows: Mild -1 through -1.5 Moderate -1.6 through -2.0 Severe -2.1 through -2.4 The Z-score is the number of standard deviations above or below age-matched controls. A Z-score of less than -1.5 would be considered abnormal. References: 1. NIH Osteoporosis and Related Bone Diseases http://www.osteo.org 2. International Society for Clinical Densitometry http://www.iscd.org 3. National Osteoporosis Foundation http://www.nof.org Electronically Signed: Bentley Lee, at 9:22 EDT , Service support ,
--- NOTE | 2019-05-01 11:33 | BI_ITS ---
MAMMOGRAPHY - BILATERAL SCREENING REASON FOR EXAM: Female, 73 years old. Routine annual screening examination. PERTINENT HISTORY: Non-contributory. TECHNIQUE: Digital bilateral breast rod (3D mammographic acquisition) in the CC and MLO projections. 2-D mediolateral oblique (MLO) and craniocaudad (CC) views of both breasts were obtained. CAD: Full Field Digital Mammography with Computer Added Detection was performed. COMPARISON: Comparison is made with prior study dated March 23, 2018 and January 04, 2017. FINDINGS: Breast Composition: The breasts are heterogeneously dense, which may obscure small masses. There are no dominant masses or suspicious calcifications. No other significant abnormalities are identified. There has been no significant change since the prior study. BI/SCREEN MAMM (CAD) W/ROD BILAT IMPRESSION: Stable bilateral screening mammogram. Yearly follow-up mammogram recommended. (A) ASSESSMENT CATEGORY: BIRADS Category 1: Negative. A letter regarding these results will be sent to the patient by the facility within 30 days. Approximately 10% of breast cancers are not detected by mammography. A normal mammogram should not delay biopsy of a clinically suspicious abnormality. [id number] Electronically Signed: Bentley Lee, at 12:52 EDT , Service support ,
== END ==
PROVIDERS: Family Provider Family Medicine; PCP Family Medicine; Referring Provider Family Medicine; Visit Provider Family Medicine
DX: Z78.0 Asymptomatic menopausal state (principal); Z12.31 Encounter for screening mammogram for malignant neoplasm of breast
CPT/HCPCS: 77063; 77067; 77080

== ENCOUNTER → 2020-07-15 20:58 | Outpatient (CLI) | payer MEDICARE, SELFPAY ==
[2020-06-22 07:44] VITALS: BMI 26.8
== END ==
PROVIDERS: PCP Family Medicine; Visit Provider Nurse Practitioner Acute Care
DX: G47.33 Obstructive sleep apnea (adult) (pediatric) (principal)
CPT/HCPCS: 95811

== ENCOUNTER 2020-11-23 06:31 | Outpatient (RCR) | payer MEDICARE, SELFPAY | END 2020-11-23 23:59 | LOC: IMMUN 06:31 | PROVIDERS: PCP Family Medicine; Visit Provider Family Medicine | DX: Z23 Encounter for immunization (principal) | CPT/HCPCS: 0011A; 0012A ==

== ENCOUNTER 2021-12-22 08:20 | Day surgery (SDC) | payer OTHER, SELFPAY ==
[2021-12-22] VITALS (7 sets, daily range): BP systolic 119–143; BP diastolic 65–74; PULSE 73–85; RESP 16; TEMP 36–36.3; O2SAT 92–96; BMI 26.2
--- NOTE | 2021-12-22 08:36 | PCM.HP.BLA ---
History and Physical Date of Admission: 12/22/21 ELVIE CARPENTER, is a 76 F who presents to the office today for evaluation of laryngitis possibly secondary to reflux disease. She has been getting periodic laryngitis associated with intermittent esophageal dysphagia for several months. She says that she is not getting classic heartburn or regurgitation. She does have intermittent esophageal dysphagia in the proximal esophagus associated with solid foods and pills. She says this will get back enough that people have difficulty understanding her, frequent sore throats, difficulty swallowing food, weird epigastric sensation. Onset of symptoms 3-4 years prior with progression. Denies aggravating and alleviating factors. Denies seeing ENT. PCP encouraged Mucinex and Flonase to help with sinus drainage which she finds minimally helpful. Reports pinched nerves in her upper back and neck, rhinitis and increased saliva. Reports heart murmur that she was concerned about so she had cardiology workup which was cleared in regard to her presenting symptoms. Family history of esophageal cancer with her uncle who she reports had a horrible . ROS Const Constitutional: No anorexia, fatigue, fever(s), weight change or sleep problems Eyes Eyes: No change in vision ENT ENT: No abnormal hearing, difficulty swallowing, mouth lesions, tongue swelling or throat swelling Resp Respiratory: No cough or shortness of breath Cardio Cardiology: No chest pain at rest, chest pain with exertion, shortness of breath or dyspnea on exertion Gastro GI: No difficulty swallowing Genitourinary-Female: No difficulty urinating or burning urination Musc Musculoskeletal: No joint pain, joint swelling, muscle weakness or decreased muscle mass Skin Skin: No hair loss in leg, yellowing of the eye, itchy eyes, rash, skin ulcer or skin swelling Neuro Neurology: No abnormal hearing, abnormal movements, confusion, unsteady gait/balance or memory loss Psych Psychiatric: No anxiety, No confusion and No memory loss Endo Endocrine: No fatigue or weight change Aller/Imm Allergy/Immunologic: No itchy eyes, throat swelling or tongue swelling Sadi/Lymp Hematologic/Lymphatic: No easy bleeding, easy bruising or enlarged lymph nodes Exam Const General: cooperative and comfortable Nutritional Appearance: average body habitus and well nourished HENMT Head: normal to inspection Ears: hearing grossly normal bilaterally Nose: external nose normal Face and sinus: normal facial exam Mouth: oral mucosae normal Throat: posterior oropharynx normal Eyes General: appearance normal, both eyes and all related structures Neck Neck: normal visual inspection Chest Chest palpation & inspection: normal inspection of the chest and normal palpation of entire chest wall Resp Effort & Inspection: normal respiratory effort Auscultation: Bilateral: Clear to Auscultation Cardio Palpation: normal PMI Rate: regular rate Rhythm: regular rhythm GI Inspection: normal to inspection Auscultation: normal bowel sounds Percussion: normal to percussion Palpation: no hepatosplenomegaly Skin General: no rashes or lesions noted Neuro General: patient alert Extrem General: normal to inspection Psych Affect: normal affect Quality Reporting Tobacco Screening ([facility]) Smoking Status: Never smoker Assessment and Plan Assessment and Plan (1) Dysphagia: Status: Acute Orders: Orders: EGD Today Plan - Corine Hernandez: egd Plan - Dr. Fernandez Friend, DO: We will evaluate her upper esophagus for eosinophilic esophagitis, erosive esophagitis, gastric inlet, esophageal rings. We will also perform random biopsies of esophagus and place a Tompkins probe to see if she is having silent reflux. She was okay with this plan. I would not put her on PPI therapy because I would like to do the Tompkins pH study off of acid suppression. I have re-examined the patient. There are no clinical changes since date of exam.
[2021-12-22] MEDS: Lactated Ringers 1,000 ML 15 ML IV (08:40)
--- NOTE | 2021-12-22 09:15 | IMM_PTH ---
PATIENT: ELVIE CARPENTER LOC: EN U#:[id number] AGE/SX: 76/F ROOM: RE12/22/[address]: Dr. Jim Antonio DO : 1945 BED: DIS: 12/22/2021 SPEC #: [id number] RECD: 12/22/21 13:20 STATUS: RANDALL REErna #: [id number] PREMA: 12/22/21 09:[address]: Jim Antonio DEPT: IMMUNOHISTOCHEMISTRY RECD BY: Rosa Hoskins ENTERED: 12/22/21 13:21 SP TYPE: IMMUNO OTHR DR: Dr. Shola Dai DO Tissues: A - Stomach, NOS Procedures: H Pylori (initial) PHYSICIAN & INSTITUTION [place] [id number] SPECIMEN INFORMATION: Tissue Source: A ? Gastric body Clinical Info: Dysphagia Specimen Number: [id number] CPT code: 43301 METHODOLOGY: Deparaffinized sections of prefer/formalin-fixed tissue or PAP/DQ stained slides are incubated with monoclonal/polyclonal antibodies/oligonucleotide probes. Localization is made via biotin free immunoperoxidase method. Appropriate controls are performed and reacted as expected. Results on target cell population are indicated in the following table: RESULTS: ANTIBODY / CLONE RESULT Block A H Pylori (polyclonal) negative These tests were developed and their performance characteristics determined by [facility]. They may not have been cleared or approved by the U.S. Food and Drug Administration. The FDA has determined that such clearance or approval is not necessary. INTERPRETATION: A. Gastric body, biopsy: Negative for Helicobacter pylori organisms. SJ:souleymane 12/23/2021
--- NOTE | 2021-12-22 09:15 | EGD_PTH ---
PATIENT: ELVIE CARPENTER LOC: EN U#:[id number] AGE/SX: 76/F ROOM: RE12/22/[address]: Dr. iJm Antonio DO : 1945 BED: DIS: 12/22/2021 SPEC #: [id number] RECD: 12/22/21 10:52 STATUS: RANDALL REErna #: [id number] PREMA: 12/22/21 09:[address]: Jim Antonio DEPT: SURGICAL PATHOLOGY RECD BY: Kirstie Ariza ENTERED: 12/22/21 12:26 SP TYPE: EGD BIOPSY NUNO DR: Dr. Shola Dai DO Tissues: A - Gastric mucous membrane B - Esophagus, NOS Procedures: Surgery Specimen Level IV HEADER OPERATION: EGD ([facility]) PRE-OP DIAGNOSIS: Dysphagia TISSUE SUBMITTED: A ? Gastric body, B ? Distal esophagus MICROSCOPIC DIAGNOSIS A. Gastric body, biopsy: Mild gastritis. See microscopic description and comment. B. Distal esophagus, biopsy: Fragments of squamous epithelium with chronic inflammation and changes consistent with gastroesophageal reflux disease. MARY ELLEN:souleymane 12/23/2021 COMMENT A. The results of immunohistochemistry for Helicobacter pylori will be reported separately ([id number]). MICROSCOPIC DESCRIPTION Slides are reviewed. A. The specimen shows fragments of gastric mucosa with chronic inflammatory cell infiltrates in the lamina propria consisting of lymphocytes and plasma cells, consistent with mild chronic gastritis. GROSS DESCRIPTION A - Received in fixative is one container labeled with the patient's name and designated gastric body biopsy. The specimen consists of multiple irregular fragments of light howell soft tissue that in aggregate measure 1 x 0.5 x 0.1 cm. The specimen is totally submitted in one cassette. B - Received in fixative is one container labeled with the patient's name and designated distal esophagus biopsy. The specimen consists of two irregular fragments of light howell soft tissue that in aggregate measure 1 x 0.7 x 0.1 cm. The specimen is totally submitted in one cassette. / MARY ELLEN:souleymane 12/22/2021 TC:3 CPT: 01249 x2
--- NOTE | 2021-12-22 09:55 | OP.CCLET_ITS ---
06/22/2022 Shola Dai Re : Upper GI endoscopy procedure for Deja Ly Dear Suhas This procedure was performed on Wednesday, December 22, 2021. My impressions and recommendations are as follows: Impressions : - LA Grade A reflux esophagitis. Biopsied. - Moderate Schatzki ring. Dilated. - Gastritis. Biopsied. - Normal first portion of the duodenum. Recommendations : - Discharge patient to home. - Advance diet as tolerated today. - Continue present medications. - Use Protonix (pantoprazole) 20 mg PO BID for 8 weeks. - Nystatin suspension 100,000 units PO QID for 1 week. My findings are described in the full procedure note, which is enclosed. If I can be of further assistance, please feel free to contact me at . Sincerely, Jim Friend, 12/22/2021 9:54:31 AM This report has been signed electronically.
--- NOTE | 2021-12-22 09:55 | OP.EGD_ITS ---
Patient Name: Deja Ly Procedure Date: 12/22/2021 9:25 AM Date of : 1945 Age: 76 Procedure: Upper GI endoscopy Indications: Dysphagia Providers: Jim Antonio DO Medicines: See the Anesthesia note for documentation of the administered medications Patient Profile: This is a 76 year old female. Refer to note in patient chart for documentation of history and physical. Patient has symptoms of dysphagia with both liquids and solids. Complications: No immediate complications. Procedure: Pre-Anesthesia Assessment: - Prior to the procedure, a History and Physical was performed, and patient medications and allergies were reviewed. The patient is competent. The risks and benefits of the procedure and the sedation options and risks were discussed with the patient. All questions were answered and informed consent was obtained. Patient identification and proposed procedure were verified by the physician in the pre-procedure area. Mental Status Examination: alert and oriented. Airway Examination: normal oropharyngeal airway and neck mobility. Respiratory Examination: clear to auscultation. CV Examination: normal. Prophylactic Antibiotics: The patient does not require prophylactic antibiotics. Prior Anticoagulants: The patient has taken no previous anticoagulant or antiplatelet agents. ASA Grade Assessment: II - A patient with mild systemic disease. After reviewing the risks and benefits, the patient was deemed in satisfactory condition to undergo the procedure. The anesthesia plan was to use moderate sedation / analgesia (conscious sedation). Immediately prior to administration of medications, the patient was re-assessed for adequacy to receive sedatives. The heart rate, respiratory rate, oxygen saturations, blood pressure, adequacy of pulmonary ventilation, and response to care were monitored throughout the procedure. The physical status of the patient was re-assessed after the procedure. After obtaining informed consent, the endoscope was passed under direct vision. Throughout the procedure, the patient's blood pressure, pulse, and oxygen saturations were monitored continuously. The Endoscope was introduced through the mouth, and advanced to the second part of duodenum. The upper GI endoscopy was accomplished without difficulty. The patient tolerated the procedure well. Moderate Sedation: Moderate (conscious) sedation was administered by the endoscopy nurse and supervised by the endoscopist. The patient's oxygen saturation, heart rate, blood pressure and response to care were monitored. Total physician intraservice time was 15 minutes. Scope In: 9:34:00 AM Scope Out: 9:43:05 AM Total Procedure Duration Time 0 hours 9 minutes 5 seconds Findings: LA Grade A (one or more mucosal breaks less than 5 mm, not extending between tops of 2 mucosal folds) esophagitis with no bleeding was found 38 to 40 cm from the incisors. Biopsies were taken with a cold forceps for histology. Verification of patient identification for the specimen was done. Estimated blood loss was minimal. A moderate Schatzki ring was found in the lower third of the esophagus. A guide wire was placed, then the scope was withdrawn. Using the wire as a guide, dilation with a 15-16.5-18 mm balloon dilator was performed to 15 mm. The dilation site was examined following endoscope reinsertion and showed moderate improvement in luminal narrowing. Estimated blood loss was minimal. Segmental mild inflammation characterized by erosions and erythema was found in the gastric body. Biopsies were taken with a cold forceps for histology. Verification of patient identification for the specimen was done. Estimated blood loss was minimal. The first portion of the duodenum was normal. Impression: - LA Grade A reflux esophagitis. Biopsied. - Moderate Schatzki ring. Dilated. - Gastritis. Biopsied. - Normal first portion of the duodenum. Recommendation: - Discharge patient to home. - Advance diet as tolerated today. - Continue present medications. - Use Protonix (pantoprazole) 20 mg PO BID for 8 weeks. - Nystatin suspension 100,000 units PO QID for 1 week. Procedure Code(s): --- Professional --- 75695, Esophagogastroduodenoscopy, flexible, transoral; with insertion of guide wire followed by passage of dilator(s) through esophagus over guide wire 61954, 59, Esophagogastroduodenoscopy, flexible, transoral; with biopsy, single or multiple 75728, 59, Moderate sedation services provided by the same physician or other qualified health direct care counselor performing the diagnostic or therapeutic service that the sedation supports, requiring the presence of an independent trained observer to assist in the monitoring of the patient's level of consciousness and physiological status; initial 15 minutes of intraservice time, patient age 5 years or older CPT copyright 2017 [employer]. All rights reserved. The codes documented in this report are preliminary and upon seismic interpreter review may be revised to meet current compliance requirements. Jim Antnoio DO 12/22/2021 9:54:31 AM This report has been signed electronically. Number of Addenda: 1 Note Initiated On: 12/22/2021 9:25 AM Addendum Number: 1 Addendum Date: 06/22/2022 6:16:48 AM MAC was used as sedation for this procedure. Jim Antonio DO 06/22/2022 6:16:53 AM This report has been signed electronically.
== END 2021-12-22 23:59 | disposition home or self-care (01) ==
LOC: EN 08:22 → AC 08:23
PROVIDERS: PCP Family Medicine; Referring Provider Family Medicine; Visit Provider Internal Medicine Gastroenterology
PROC: 0DJ08ZZ Inspection of Upper Intestinal Tract, Via Natural or Artificial Opening Endoscopic (ICD-10-PCS; CPT 43235; principal; 2021-12-22 09:10)
DX: K22.2 Esophageal obstruction (principal); K21.00 Gastro-esophageal reflux disease with esophagitis, without bleeding; K29.70 Gastritis, unspecified, without bleeding; E78.00 Pure hypercholesterolemia, unspecified; M19.90 Unspecified osteoarthritis, unspecified site; G47.33 Obstructive sleep apnea (adult) (pediatric); R01.1 Cardiac murmur, unspecified; Z79.899 Other long term (current) drug therapy; Z86.73 Personal history of transient ischemic attack (TIA), and cerebral infarction without residual deficits; Z80.0 Family history of malignant neoplasm of digestive organs
CPT/HCPCS: 43239; 43248; 88305; 88342

== ENCOUNTER → 2022-07-14 | Outpatient (CLI) | payer OTHER, SELFPAY | END | disposition home or self-care (01) | PROVIDERS: PCP Family Medicine; Referring Provider Nurse Practitioner Acute Care; Visit Provider Nurse Practitioner Acute Care | DX: R09.02 Hypoxemia (principal) | CPT/HCPCS: 94762 ==

== ENCOUNTER → 2023-07-27 | Outpatient (CLI) | payer MEDICARE, SELFPAY ==
[2023-08-02 14:09] LABS: Alternaria alternata <0.10 kU/L (Class 0); Aspergillus fumigatus <0.10 kU/L (Class 0); Bahia Grass <0.10 kU/L (Class 0); Bermuda Grass <0.10 kU/L (Class 0); Bluegrass, Kentucky <0.10 kU/L (Class 0); Cat Hair/Dander, Standard <0.10 kU/L (Class 0); Cedar, Mountain <0.10 kU/L (Class 0); Cladosporium herbarum <0.10 kU/L (Class 0); Cockroach, American <0.10 kU/L (Class 0); D farinae Mite <0.10 kU/L (Class 0); D pteronyssinus <0.10 kU/L (Class 0); Dog Epithelia <0.10 kU/L (Class 0); Elm, American White <0.10 kU/L (Class 0); Hazelnut Tree <0.10 kU/L (Class 0); Hickory, White <0.10 kU/L (Class 0); Johnson Grass <0.10 kU/L (Class 0); Maple/Box Elder <0.10 kU/L (Class 0); Mucor racemosus <0.10 kU/L (Class 0); Mugwort <0.10 kU/L (Class 0); Mulberry, White <0.10 kU/L (Class 0); Nettle <0.10 kU/L (Class 0); Oak, White <0.10 kU/L (Class 0); Penicillium chrysogen <0.10 kU/L (Class 0); Pigweed, Rough <0.10 kU/L (Class 0); Plantain, English <0.10 kU/L (Class 0); Ragweed, Short/Common 0.18 kU/L (Class 0/I); Sheep Sorrel(Dock) <0.10 kU/L (Class 0); Stemphylium herbarum <0.10 kU/L (Class 0); Sweet Gum <0.10 kU/L (Class 0); Sycamore, American <0.10 kU/L (Class 0)
== END | disposition home or self-care (01) ==
LOC: LAB 15:43
PROVIDERS: PCP Family Medicine; Visit Provider Internal Medicine Gastroenterology
DX: R13.10 Dysphagia, unspecified (principal)
CPT/HCPCS: 36415; 86003

== ENCOUNTER → 2023-08-08 | Outpatient (CLI) | payer MEDICARE, SELFPAY ==
--- NOTE | 2023-08-08 10:25 | BD_ITS ---
STUDY: DUAL ENERGY X-RAY ABSORPTIOMETRY / DXA REASON FOR EXAM: Female, 78 years old. 627.8Menopausal postmenopausal BONE DENSITY REASON FOR EXAM TECHNIQUE: Bone Mineral Density (BMD) measurements of lumbar spine and bilateral hips were obtained. COMPARISON: Comparison is made with prior study dated May 01, 2019. FINDINGS: Lumbar Spine (L1-L4): g/cm2 (0.737) / T-score (-2.2) / Z-score (0.3) Findings are suggestive of osteopenia with a high fracture risk. Left Femur Total: g/cm2 (0.686) / T-score (-2.1) / Z-score (0.0) Left Femoral Neck: g/cm2 (0.561) / T-score (-2.6) / Z-score (-0.3) Right Femur Total: g/cm2 (0.731) / T-score (-1.7) / Z-score (0.3) Right Femoral Neck: g/cm2 (0.546) / T-score (-2.7) / Z-score (-0.4) The T-Scores on the most recent prior examination were: Lumbar Spine (L1-L4): There has been worsening of bone density since the previous examination. Left Femur Total: which represents a worsening of 9.6%. Right Femur Total: which represents a worsening of 2.9%. BD/Dexa Bone Density Study IMPRESSION: The patient is considered osteoporotic as outlined below according to [employer] (WHO) criteria with a high fracture risk. There has been worsening of bone density since the previous examination. Reference Information: The T-score is the number of standard deviations above or below the standard which is normal for young adults at their peak bone mineral density. The World Health Organization (WHO) interprets the T-scores as follows: Above -1 Normal bone density Between -1 and -2.5 Osteopenia Equal to / or below -2.5 Osteoporosis As a practical clinical guideline, osteopenia may be graded as follows: Mild -1 through -1.5 Moderate -1.6 through -2.0 Severe -2.1 through -2.4 The Z-score is the number of standard deviations above or below age-matched controls. A Z-score of less than -1.5 would be considered abnormal. References: 1. NIH Osteoporosis and Related Bone Diseases www osteo.org 2. International Society for Clinical Densitometry www iscd.org 3. National Osteoporosis Foundation www nof.org Electronically Signed: Bentley Lee MD at 15:30 EST ,
== END | disposition home or self-care (01) ==
LOC: OPBD 10:21
PROVIDERS: PCP Family Medicine; Referring Provider Family Medicine; Visit Provider Family Medicine
DX: Z78.0 Asymptomatic menopausal state (principal)
CPT/HCPCS: 77080

== ENCOUNTER → 2023-08-15 | Outpatient (CLI) | payer MEDICARE, SELFPAY ==
[2023-08-18 06:08] LABS: Beef <0.10 kU/L (Class 0); Chocolate <0.10 kU/L (Class 0); Codfish <0.10 kU/L (Class 0); Corn <0.10 kU/L (Class 0); Egg, Whole <0.10 kU/L (Class 0); Milk (Cow) <0.10 kU/L (Class 0); Mussels <0.10 kU/L (Class 0); Peanut <0.10 kU/L (Class 0); Pork <0.10 kU/L (Class 0); Salmon <0.10 kU/L (Class 0); Shrimp <0.10 kU/L (Class 0); Soybean <0.10 kU/L (Class 0); Tuna <0.10 kU/L (Class 0); Wheat <0.10 kU/L (Class 0)
== END | disposition home or self-care (01) ==
LOC: LAB 09:11
PROVIDERS: PCP Family Medicine; Visit Provider Internal Medicine Gastroenterology
DX: R13.19 Other dysphagia (principal); T78.40XA Allergy, unspecified, initial encounter
CPT/HCPCS: 36415; 86003; 86005

== ENCOUNTER → 2023-09-01 | Outpatient (CLI) | payer MEDICARE, SELFPAY ==
--- NOTE | 2023-09-01 14:06 | SP.MBSS_ITS ---
Modified Barium Swallow Patient Information Study Date: 09/01/23 Study Time: 13:00 Direct Billable Minutes: 92 Total Minutes procedure & reportin Diagnosis: Dysphagia R13.10 Referring Physician: Jim Antonio Reason for Referral: Objectively assess swallow function, assess risk for aspiration, and determine recommendations for least restrictive diet textures and compensatory strategies to improve safety of swallow. Medical History: PMH: Hx of esophageal dysphagia s/p dilation with EGD by Dr. Antonio (2021), Bi PAP dependence, difficulty swallowing esophageal reflux, non-smoker, TIA, sleep apnea, hx of emergent trach placement when she was 3 years old due to airway spasm from bronchitis per patient. Patient reports difficulty swallowing for >5 years characterized by gagging/coughing with drinks, occasionally foods. She feels that sometimes she will breathe in as she drinks, which causes the drink to go the wrong way. She does admit to eating/drinking quickly at times. She feels that she has a lot of phlegm in her throat. Sometimes at nighttime she will wake up coughing. No hx of PNA. Current Diet Ordered: Regular textures / Thin liquids Dentition: Natural Teeth Mental Status: WNL Respiratory Status: Oxygenating on Room Air Penetration-Aspiration Scale Penetration-Aspiration Scale: OBJECTIVE ASSESSMENT OF SWALLOW FUNCTION (QUANTITATIVE ? PER TRIAL): PENETRATION / ASPIRATION SCALE (LY): 1 = does not enter airway 2 = enters airway/above vocal folds/ejected 3 = enters airway/above vocal folds/not ejected 4 = enters airway/contacts vocal folds/ejected 5 = enters airway/contacts vocal folds/not ejected 6 = enters airway/below vocal folds/ejected 7 = enters airway/below vocal folds/not ejected despite effort 8 = enters airway/below vocal folds/no effort VIDEOFLOROSCOPIC SCALE SCORE (LY): Grade I = aspiration of material that has penetrated into the laryngeal vestibule, intact cough reflex Grade II = aspiration < 10 % of the bolus, intact cough reflex Grade III = aspiration of < 10 % of the bolus, reduced cough reflex or aspiration of > 10 % of the bolus, intact cough reflex Grade IV = aspiration of > 10 % of the bolus, reduced cough reflex Penetration-Aspiration Scale Score Thin Liquid via teaspoon: Result: 1= does not enter airway Thin Liquid via teaspoon Trial 2: Result: 1= does not enter airway Thin Liquid via small single sip: cup: Result: 1= does not enter airway Mims Thick Liquid via small single sip: cup: Result: 1= does not enter airway Pudding via teaspoon: Result: 1= does not enter airway Comment: Esophageal screen = Complete clearance. 1/2 Cookie: Result: 1= does not enter airway Comment: Esophageal screen = Complete clearance. Thin Liquid via sequential sips:straw: Result: 1= does not enter airway Comment: Esophageal screen = Complete clearance. Oral Phase Labial Seal: Interlabial escape, no progression to anterior lip Tongue Control During Bolus Hold: Posterior escape of less than half of bolus (sequential sips by straw) Bolus Preparation/Mastication: Timely and efficient chewing and mashing Bolus Transport/Lingual Motion: Brisk tongue motion Oral Residue: Trace residue lining oral structures Pharyngeal Phase Initiation of Pharyngeal Swallow: Bolus head in pyriforms Soft Palate Elevation: No bolus between soft palate and pharyngeal wall Laryngeal Elevation: Comp. Superior move thyroid cart w/comp. apprx arytenoid cart-epig pet Anterior Hyoid Excursion: Partial anterior movement Epiglottic Movement: Complete inversion Laryngeal Vestibule Closure at Height of Swallow: Complete; no air/contrast in laryngeal vestibule Pharyngeal Stripping Wave: Present - complete Pharyngoesophageal Segment Opening: Complete distension and complete duration; no obstruction of flow Tongue Base Retraction: Narrow column of contrast between tongue base & post. pharyngeal wall (sequential sips of thin) Pharyngeal Residue: Trace residue within or on pharyngeal structures Esophageal Phase Esophageal Clearance: Complete clearance Diagnosis/Impression Diagnosis: Oropharyngeal swallow function grossly WNL Impression: The patient's oropharyngeal swallow was grossly WNL. With sequential sips of thin liquids, the swallow onset with bolus head in the pyriforms; however, the patient demonstrated good airway closure during the swallow. No laryngeal penetration or aspiration. Trace oral and pharyngeal residues after the swallow. Small CP-bar at the level of C4, which did not appear to impact bolus clearance through the cricopharyngeus. Recommendations Diet: Regular Textures and Thin Liquids Compensatory Strategies: Small Bites, Small Sips, Slow Rate, Alternate bites/solids and sips/liquids, Sitting upright and Remain sitting upright for 30 minutes after PO intake Recommend Repeat Modified Barium Swallow: No Need for Skilled Speech Therapy Services: No Recommended Referrals: GI Consult (Continue to follow for management of GERD and due to hx of esophageal dysphagia.) Education Completed: 1. Described result of evaluation. Status Active ST Patient: Active Contact Information [facility] Speech Therapy:: Rebekah Krishnamurthy M.A. [facility] Speech-Language Pathologist [facility] [address] [place] [address] [email or web address] [phone]
== END | disposition home or self-care (01) ==
PROVIDERS: PCP Family Medicine; Referring Provider Internal Medicine Gastroenterology; Visit Provider Internal Medicine Gastroenterology
DX: R13.10 Dysphagia, unspecified (principal)
CPT/HCPCS: 74230; 92611

== ENCOUNTER 2024-01-18 17:30 | Outpatient (RCR) | payer SELFPAY | END 2024-01-23 23:59 | LOC: NS 17:30 | PROVIDERS: PCP Family Medicine | DX: Z71.3 Dietary counseling and surveillance (principal) ==

== ENCOUNTER → 2024-02-16 | Outpatient (CLI) | payer MEDICARE, SELFPAY | END | disposition home or self-care (01) | LOC: PSN 09:08 | PROVIDERS: PCP Family Medicine; Referring Provider Nurse Practitioner Acute Care; Visit Provider Nurse Practitioner Acute Care | DX: R06.02 Shortness of breath (principal) | CPT/HCPCS: 94060; 94726; 94729 ==

== ENCOUNTER → 2024-02-23 | Outpatient (CLI) | payer MEDICARE, SELFPAY ==
[2024-02-23 12:30] VITALS: PULSE 108; PULSE 111; PULSE 113; PULSE 114; PULSE 119; PULSE 90; PULSE 94; O2SAT 95; O2SAT 97; O2SAT 98
--- NOTE | 2024-02-26 07:21 | WT_ITS ---
PSN 6 Minute Walk Test 6 Minute Walk Test 6 Minute Walk Test: 6 Minute Walk Test PSN:6-Minute Walk Test Start: 02/23/24 13:20 Freq: Status: Active Protocol: [id number] Document 02/23/24 12:30 JR (Rec: 02/23/24 13:23 JR [id number]) 6 Minute Walk Test Date Performed 02/23/24 Time Performed 12:30 Height 5 ft 8 in Weight: 140 lb 10.354 oz Weight in Pounds 140.[address]: Torie Clayton [employer] Assistive device used: Cane Pre-test Oxygen Delivery Method Room Air Pulse Ox (%) 97 Pulse Rate (60-100 beats/min) 90 Dyspnea Bartolo Scale (0-10) 0 Exertion Bartolo Scale (6-20) 6 1st minute Oxygen Delivery Method Room Air Pulse Ox (%) 98 Pulse Rate (60-100 beats/min) 108 H 2nd minute Oxygen Delivery Method Room Air Pulse Ox (%) 97 Pulse Rate (60-100 beats/min) 111 H 3rd minute Oxygen Delivery Method Room Air Pulse Ox (%) 97 Pulse Rate (60-100 beats/min) 113 H 4th minute Oxygen Delivery Method Room Air Pulse Ox (%) 97 Pulse Rate (60-100 beats/min) 114 H 5th minute Oxygen Delivery Method Room Air Pulse Ox (%) 95 Pulse Rate (60-100 beats/min) 113 H 6th minute Oxygen Delivery Method Room Air Pulse Ox (%) 98 Pulse Rate (60-100 beats/min) 119 H Dyspnea Bartolo Scale (0-10) 2 Exertion Bartolo Scale (6-20) 11 Post-test Oxygen Delivery Method Room Air Pulse Ox (%) 98 Pulse Rate (60-100 beats/min) 94 Full Laps Walked 15 Partial Lap, Number of Tiles Walked 10 Total Distance Walked (ft) 895 Interpretation Interpretation: The patient ambulated 895 feet over the course of 6 minutes beginning on room air with use of a cane. Pretesting oxygen saturation was noted to be 97% on room air. With ambulation, the tramaine oxygen saturation was 95%. There was no significant exertional oxygen desaturation. Recommendations Recommendations: There is no indication for the use of supplemental oxygen at this time.
== END | disposition home or self-care (01) ==
LOC: PSN 12:25
PROVIDERS: PCP Family Medicine; Referring Provider Nurse Practitioner Acute Care; Visit Provider Nurse Practitioner Acute Care
DX: R06.02 Shortness of breath (principal)
CPT/HCPCS: 94618

== ENCOUNTER → 2024-03-21 | Outpatient (CLI) | payer MEDICARE, SELFPAY ==
--- NOTE | 2024-03-21 11:15 | RAD_ITS ---
STUDY: X-RAY - PARANASAL SINUSES REASON FOR EXAM: Female, 78 years old. Severe sinusitis. TECHNIQUE: 4 view(s) of the paranasal sinuses were obtained. COMPARISON: None. FINDINGS: Osteopenia. Normal visualized frontal, maxillary, ethmoidal and sphenoid sinuses. Normal visualized facial bones. Normal soft tissues. Incidentally noted is moderate cervical spondylosis. RAD/Sinuses min 3 Views IMPRESSION: Moderate cervical spondylosis. No evidence of acute or chronic sinus abnormality. Electronically Signed: Jose Watson MD at 11:40 EDT ,
== END | disposition home or self-care (01) ==
LOC: RAD 11:13
PROVIDERS: PCP Podiatrist; Referring Provider Internal Medicine Gastroenterology; Visit Provider Internal Medicine Gastroenterology
DX: R06.09 Other forms of dyspnea (principal)
CPT/HCPCS: 70220

== ENCOUNTER 2024-04-29 12:08 | Outpatient (RCR) | payer SELFPAY | END 2024-05-25 23:59 | LOC: NS 12:08 | PROVIDERS: PCP Family Medicine | DX: Z71.3 Dietary counseling and surveillance (principal) ==

== ENCOUNTER → 2025-03-13 | Outpatient (CLI) | payer MEDICARE, SELFPAY | END | disposition home or self-care (01) | PROVIDERS: PCP Podiatrist; Referring Provider Nurse Practitioner Acute Care; Visit Provider Nurse Practitioner Acute Care | DX: Z46.89 Encounter for fitting and adjustment of other specified devices (principal) ==